=== PATIENT | female | born 1965 | race Caucasian/White ===

== ENCOUNTER → 2020-12-23 | Outpatient (CLI) | payer BC | END | disposition home or self-care (01) | LOC: COVID19 09:22 | PROVIDERS: ATTEND Nurse Practitioner Family | DX: J02.9 Acute pharyngitis, unspecified (principal); J32.9 Chronic sinusitis, unspecified; H92.01 Otalgia, right ear; R05 Cough; Z20.822 Contact with and (suspected) exposure to COVID-19 ==

== ENCOUNTER → 2024-07-04 | Outpatient (CLI) | payer OTHER | END | disposition home or self-care (01) | LOC: LAB 17:47 | PROVIDERS: ATTEND Nurse Practitioner Family | DX: R09.81 Nasal congestion (principal); R05.8 Other specified cough; R53.83 Other fatigue; Z20.822 Contact with and (suspected) exposure to COVID-19 ==